=== PATIENT | female | born 1935 | race Caucasian/White ===

== ENCOUNTER 2016-06-17 17:11 | Emergency (ER) | payer MEDICARE ==
--- NOTE | 2016-06-24 08:15 | ER ---
ADMIT: 06/17/2016 RM/LOC: ER [facility] MR#: [id number] [id number] [id number] SARA CHANG [address] [place] [place] [address] Emergency Room Report SEX: F AGE: 80 : 1935 DATE: 06/17/2016 HISTORY OF PRESENT ILLNESS: Sara is a 80-year-old, who was at home, lives by herself. She was working on something and fell 5 feet from a ladder. She landed on her bottom and is complaining of pain in her low back. ALLERGIES: SHE HAS ALLERGY TO SULFA. MEDICATIONS: She has gastritis medications that she takes among other medications. PHYSICAL EXAMINATION: VITAL SIGNS: Within normal limits. GENERAL: She is lying flat in the bed complaining of back pain points to the lumbar area. NEURO: Oriented x4. SKIN: Good color and turgor. BACK: Muscle spasm. EXTREMITIES: Atraumatic with good pulses. IMAGING: CT normal without any issues. Lumbosacral CT scan read as negative. CLINICAL IMPRESSION: Lumbosacral contusion secondary from fall. The patient given Dilaudid for pain control and Ultram for pain. Discharged home. ISRAEL Gannon / Elvis Alvarado MD / clarel JOB #: [id number] CC: Elvis Alvarado MD, Attending Physician Vamshi Flores MD, Family Physician
== END 2016-06-17 19:52 | disposition home or self-care (01) ==
LOC: ER 17:11
DX: S30.0XXA Contusion of lower back and pelvis, initial encounter (principal); Z88.2 Allergy status to sulfonamides; Z79.899 Other long term (current) drug therapy; W11.XXXA Fall on and from ladder, initial encounter